=== PATIENT | female | born 1970 | race Caucasian/White ===

== ENCOUNTER 2016-06-27 21:38 | Inpatient (IN) | payer MEDICARE ==
--- NOTE | ~2016-06-27 | PN ---
Unit #: [id number] #: [id number] Patient: ISABELL MCINTOSH [id number] [facility] [address] [place] [address] [id number] I MR#: [id number] NAME: ISABELL MCINTOSH. ROOM: P256 Age: 45 Sex: F Admission Date: 06/27/2016 : 1970 Attending Physician: Christian Pierson M.D. Admitting Physician: Christian Pierson M.D. Primary Care Physician: Primary Care Physician Judit GONZALES NOTES DATE OF SERVICE: 07/05/2016 DISCUSSION Ms. Mcintosh states that she became agitated and angry with the nurse this morning when the nurse attempted to defer provision of the patient's pain medication. She is quite insistent that these medications be delivered on her schedule. Her mood is irritable, but otherwise less depressed with a brighter affect. She is alert with no evidence of psychosis. She does continue to report some SI. ASSESSMENT Major depression; borderline personality disorder. PLAN Continue current treatment plan and anticipate discharge soon. Dictated by... Karen Beverly/dora TD: 07/06/2016 00:41 JOB #: [id number] NORA GONZALES NOTES Page 1 of 1 X Christian Pierson MD PROGRESS NOTE
--- NOTE | ~2016-06-27 | PN ---
Unit #: [id number] #: [id number] Patient: EMELY MCINTOSH [id number] [facility] [address] [place] [address] [id number] I MR#: [id number] NAME: EMELY MCINTOSH. ROOM: P256 Age: 45 Sex: F Admission Date: 06/27/2016 : 1970 Attending Physician: Christian Pierson M.D. Admitting Physician: Christian Pierson M.D. Primary Care Physician: Primary Care Physician Judit MELENDEZ PROGRESS NOTES DATE 06/29/2016 DISCUSSION Emely continues to be depressed, downcast and isolated. She tends to stay in her room for much of the day without coming out for very many groups or activities. She is alert and fully oriented. Her memory and concentration are fair. Her thought processes are logical. There is no evidence of psychosis today. She does continue to endorse suicidal ideation with multiple plans. ASSESSMENT Major depressive disorder. PLAN Continue current treatment plan and encourage participation in groups and activities. Dictated by... Christian Pierson M.D. JENIFFER/kari TD: 07/02/2016 20:22 JOB #: [id number] PEAJAKUB PROGRESS NOTES Page 1 of 1 X Christian Pierson MD PROGRESS NOTE
--- NOTE | ~2016-06-27 | PA ---
Unit #: [id number] #: [id number] Patient: EMELY MCINTOSH [id number] [place] [address] [id number] I MR#: [id number] NAME: EMELY MCINTOSH. ROOM: P251 Age: 45 Sex: F Admission Date: 06/27/2016 : 1970 Date of Assessment: Attending Physician: Christian Pierson M.D. Admitting Physician: Christian Pierson M.D. Primary Care Physician: Primary Care Physician No PSYCHIATRIC ASSESSMENT INFORMANTS The patient, reliable; OLOP, reliable. CHIEF COMPLAINT Suicidal ideation. HISTORY OF PRESENT ILLNESS Emely Mcintosh is a 45-year-old woman with a history of major depression and borderline personality disorder. She had made superficial scratches on both hands and wrist, stating that she was "so confused," ever having been recently approved for disability. She also reported noncompliance with some of her medications due to a change in her medical insurance. She was readmitted for stabilization. PAST PSYCHIATRIC HISTORY This is Emely's 18th admission to this facility. She is taking multiple psychiatric and nonpsychiatric medications, but has been erratically compliant. FAMILY PSYCHIATRIC HISTORY The patient's father suffered from an unspecified mental illness. SOCIAL HISTORY The patient is with a difficult relationship and a great deal of chaos in the family. She is on long-term disability for physical and medical conditions and lives with her family and children. PAST MEDICAL HISTORY History of grand mal seizures that had been suggested are psychological in nature, chronic pain, hypertension, and GERD. MEDICATIONS Oxycodone, Phenergan, lisinopril, Protonix, Keppra, gabapentin, Bentyl, and Fioricet. ALLERGIES Compazine, ibuprofen, Imitrex, and NSAIDs. SUBSTANCE ABUSE HISTORY The patient has been treated for opioid dependence in the past. MENTAL STATUS EXAMINATION Emely presented as a disheveled woman, who appeared older than her Unit #: [id number] #: [id number] Patient: EMELY MCINTOSH stated age. Her speech was soft and slow, but easily understood. Musculoskeletal examination was calm. Her mood was depressed with a flat affect. She was alert and fully oriented. Her memory and concentration were intact. Her thought processes were logical with no evidence of psychosis, although she did express mild paranoia. She reported suicidal ideation with a plan to cut her wrist and could not contract for safety. Insight and judgment, fair. Fund of knowledge and abstraction, fair. ASSETS AND LIABILITIES The patient is familiar with local resources and presents voluntarily for treatment. She does have a history of compliance with treatment. Liabilities include lack of current provider and erratic compliance. ADMITTING DIAGNOSES AXIS I: Major depression, F33.2. AXIS II: Borderline personality disorder. AXIS III: Hypertension, gastroesophageal reflux disease, chronic pain, and pseudoseizures. AXIS IV: AXIS V: PSYCHIATRIC PLAN The patient was admitted and placed on suicide precautions. Venlafaxine will be changed to immediate release form at 75 mg b.i.d. and other medications will be continued once confirmed through her pharmacy. Physical examination and laboratory studies will be ordered and reviewed. TREATMENT GOALS Resolution of SI, improvement in insight, and improvement in coping skills. DISCHARGE PLANNING Follow up with [facility] and primary care physician. ESTIMATED LENGTH OF STAY 5 days. Dictated by... Christian Pierson M.D. JENIFFER/dora TD: 06/29/2016 04:51 JOB #: [id number] PSYCHIATRIC ASSESSMENT Page 1 of 1 X Christian Pierson MD X PSYCHIATRIC ASSESSMENT
--- NOTE | ~2016-06-27 | DS ---
Unit #: [id number] #: [id number] Patient: EMELY MCINTOSH [id number] [facility] [address] [place] [address] [id number] I MR#: [id number] NAME: EMELY MCINTOSH ROOM: P256 Age: 45 Sex: F Admission Date: 06/27/2016 : 1970 Discharge Date: 07/06/2016 Attending Physician: Christian Pierson M.D. Primary Care Physician: Primary Care Physician No DISCHARGE SUMMARY REASON FOR ADMISSION Briana is a 45-year-old woman with a history of major depression and borderline personality disorder. The patient was increasingly hopeless and depressed, after she was recently approved for disability and felt this was a crisis point for her. She had made superficial scratches on both hands and her wrists and could not contract for safety in the outpatient setting. She was readmitted for stabilization. DIAGNOSTIC STUDIES LABORATORY RESULTS: Please see hospital chart. HOSPITAL COURSE The patient was admitted and placed on suicide precautions. She stated that she was unable to afford extended release form of venlafaxine, so this was changed to immediate release form beginning at 75 mg b.i.d. and later increased to t.i.d. for maximum benefit. For the first several days of her hospitalization, Emely was withdrawn and quiet, staying in her room, and having a very labile and tearful affect. As time went on, she was able to attend psychotherapy groups and activities more actively, and participated especially in journaling and art therapy. Her affect improved and mood was brighter. She was able to contract for safety on the date of discharge. DISCHARGE DIAGNOSES AXIS I: Major depression with psychotic features. AXIS II: Borderline personality disorder. AXIS III: Hypertension, gastroesophageal reflux disease, chronic pain, and pseudoseizures. AXIS IV: AXIS V: DISCHARGE INSTRUCTIONS Follow up with primary care physician and with community mental health resources. DISCHARGE MEDICATIONS Venlafaxine 75 mg t.i.d. for depression, Seroquel 400 mg at bedtime for mood stability and insomnia. Other medicines continued by primary care physician include clonazepam 0.5 mg every 8 hours as needed for anxiety, Neurontin 600 mg t.i.d. for pain, Keppra 500 mg b.i.d. for seizures, Protonix 40 mg daily for GERD, Zestril 20 mg daily for hypertension, Unit #: [id number] #: [id number] Patient: EMELY MCINTOSH oxycodone IR 30 mg every 4 hours maximum 4 doses in 24 hours as needed for pain, and Phenergan 25 mg every 6 hours as needed for nausea. CONDITION AT DISCHARGE Improved. PROGNOSIS Fair to good. DIET AND ACTIVITY Per primary care doctor. Dictated by... Christian Pierson M.D. JENIFFER/dora TD: 07/07/2016 11:37 JOB #: [id number] DISCHARGE SUMMARY Page 1 of 1 X Christian Pierson MD X DISCHARGE SUMMARY
--- NOTE | ~2016-06-27 | PN ---
Unit #: [id number] #: [id number] Patient: EMELY MCINTOSH [id number] [facility] [address] [place] [address] [id number] MR#: [id number] NAME: EMELY MCINTOSH. ROOM: P256 Age: 45 Sex: F Admission Date: 06/27/2016 : 1970 Attending Physician: Christian Pierson M.D. Admitting Physician: Christian Pierson M.D. Primary Care Physician: Primary Care Physician Judit MELENDEZ PROGRESS NOTES DATE 07/04/2016 DISCUSSION Emely continues to report depressed and anxious mood with labile affect. She is easily upset by minor slights through her family or peers and staff. She is attending groups and activities and appears to be trying although her psychological insight remains somewhat limited. She is alert and fully oriented with no evidence of psychosis today. ASSESSMENT Major depression with psychotic features. Borderline personality traits. PLAN We will increase venlafaxine to 75 mg t.i.d. and continue current precautions. Dictated by... Karen Beverly/jc TD: 07/07/2016 05:14 JOB #: [id number] NORA PROGRESS NOTES Page 1 of 1 X Christian Pierson MD X PROGRESS NOTE
--- NOTE | ~2016-06-27 | PN ---
Unit #: [id number] #: [id number] Patient: EMELY MCINTOSH [id number] [facility] [address] [place] [address] [id number] MR#: [id number] NAME: EMELY MCINTOSH ROOM: P256 Age: 45 Sex: F Admission Date: 06/27/2016 : 1970 Attending Physician: Christian Pierson M.D. Admitting Physician: Christian Pierson M.D. Primary Care Physician: Primary Care Physician Judit GONZALES NOTES DATE OF SERVICE: 06/30/2016 DISCUSSION Emely continues to be somewhat isolative, although she says that she is "going to try" to attend groups later today. She is tolerating a change to venlafaxine immediate release with no significant adverse side effects. She is alert and fully oriented today. Her mood is depressed with a significantly flat and downcast affect. There is no evidence of psychosis and she continues to report suicidal ideation. ASSESSMENT Major depression. PLAN Continue current treatment plan. We will provide calamine lotion for what appears to be an outbreak of poison stacey that the patient was exposed to prior to admission. Dictated by... Christian Pierson M.D. [facility]/monical TD: 07/01/2016 18:52 JOB #: [id number] NORA GONZALES NOTES Page 1 of 1 X Christian Pierson MD PROGRESS NOTE
--- NOTE | ~2016-06-27 | PN ---
Unit #: [id number] #: [id number] Patient: EMELY MCINTOSH [id number] [facility] [address] [place] [address] [id number] I MR#: [id number] NAME: EMELY MCINTOSH. ROOM: P256 Age: 45 Sex: F Admission Date: 06/27/2016 : 1970 Attending Physician: Christian Pierson M.D. Admitting Physician: Christian Pierson M.D. Primary Care Physician: Primary Care Physician Judit GONZALES NOTES DATE OF SERVICE: 07/01/2016 DISCUSSION Emely is a little more awake and alert today. She continues to express severely depressed mood and has a downcast affect. Her dress and grooming are slightly better today. She is alert and fully oriented. Her memory and concentration are fair. Her thought processes are logical with no evidence of psychosis. She continues to state that she has "lots of issues to work out" including a fractious relationship with her and a difficult relationship with her young daughter. ASSESSMENT Major depression. PLAN We will continue current precautions and medications. Dictated by... Karen Beverly/dora TD: 07/01/2016 18:41 JOB #: [id number] NORA PROGRESS NOTES Page 1 of 1 X Christian Pierson MD PROGRESS NOTE
--- NOTE | ~2016-06-27 | HP ---
Unit #: [id number] #: [id number] Patient: EMELY MCINTOSH [id number] [place] [address] [id number] MR#: [id number] NAME: EMELY MCINTOSH. ROOM: P251 Age: 45 Sex: F Admission Date: 06/27/2016 : 1970 Attending Physician: Christian Pierson M.D. Admitting Physician: Christian Pierson M.D. Primary Care Physician: Primary Care Physician No HISTORY AND PHYSICAL HISTORY OF PRESENT ILLNESS Emely is a 45 year old admitted to [address] [place] [address] with depression and verbalizing wanting to hurt herself. PAST MEDICAL HISTORY 1. History of self-harming. She has been scratching her wrist prior to admission. 2. Hepatitis C. 3. History of MRSA. 4. High blood pressure. 5. Seizure disorder. 6. History of migraines. 7. Degenerative disc disease. a. Chronic pain. 8. History of goiter. a. Partial thyroidectomy. PAST SURGICAL HISTORY 1. As above. 2. Hysterectomy. 3. Cholecystectomy. 4. Appendectomy. 5. Tubal ligation. ALLERGIES Sulfa, latex, Compazine, Imitrex, tramadol. SOCIAL HISTORY Smokes, denies alcohol and illicit drug use. FAMILY HISTORY Medically noncontributory. REVIEW OF SYSTEMS CONSTITUTIONAL: No fever or chills. HEENT: Denies any sore throat, ear pain or runny nose. CARDIOVASCULAR: Denies chest pain, irregular heart rhythm or palpitations. CHEST: Denies shortness of breath or cough. No hemoptysis. GASTROINTESTINAL: Denies nausea, vomiting, diarrhea or chronic constipation. ENDOCRINE: Denies history of increased thirst or urination. No recent significant weight loss or gain. GENITOURINARY: Denies dysuria, frequency, or hematuria. Unit #: [id number] #: [id number] Patient: EMELY MCINTOSH SKIN: Denies any rashes. HEMATOLOGIC: Denies history of increased bleeding or bruising. MUSCULOSKELETAL: Denies any hot, swollen joints. No generalized muscle pain. NEUROLOGIC: Denies problems with vision or speech. No frequent, severe headaches. No numbness, tingling or weakness in any extremities. Denies loss of bladder or bowel control. CURRENT MEDICATIONS 1. Seroquel 200 mg q.h.s. 2. Keppra 500 mg b.i.d. 3. Klonopin 0.5 mg q. 8 hours. 4. Phenergan p.r.n. 5. Neurontin 600 mg t.i.d. 6. Oxycodone 30 mg q. 4 hours p.r.n. 7. Zestril 20 mg daily. 8. Protonix 40 mg daily. 9. Effexor XR 75 mg daily. 10. Milk of Magnesia p.r.n. 11. Maalox p.r.n. 12. Tylenol p.r.n. PHYSICAL EXAMINATION GENERAL: Alert, well-nourished, in no apparent distress. VITAL SIGNS: Blood pressure 112/66, heart rate 80, respirations 16, temperature 98.6. WEIGHT: 150. HEIGHT: 5 feet 6 inches. SKIN: Warm and dry without rash. She has multiple linear superficial scratches along bilateral wrists. These areas have scabbed over. There is no increased redness, swelling, heat or pus noted. HEENT: Normocephalic. TMs not viewed. Oral and nasal passages clear. Conjunctivae clear. PERRLA. EOMs intact. NECK: Supple without lymphadenopathy or thyromegaly. HEART: Regular rate and rhythm without murmur. LUNGS: Clear. ABDOMEN: Soft, nontender. : Not done. EXTREMITIES: No evidence of cyanosis, clubbing or edema. Moves all without focal deficit. NEUROLOGICAL: Grossly within normal limits. Cranial Nerves: II: Visual guo are intact. III, IV AND : Extraocular movements are intact. Pupils are equal, round and reactive to light. V: Facial sensation is grossly normal. VII: Facial movements and expression are normal. VIII: Auditory acuity grossly intact. IX, X: Uvula is midline. Phonation is normal. XI: Patient shrugs shoulders and turns head normally. XII: Tongue protrudes in the midline. Sensory and Motor Function: Sensory and motor sensation is grossly normal. Motor: moves all extremities well. Coordination: Gait is normal. Deep Tendon Reflexes: Intact. IMPRESSION Psychiatric admission. RECOMMENDATIONS PSYCHIATRIC: Per psychiatrist. Unit #: [id number] #: [id number] Patient: DAYNA,EMELY J MEDICAL: 1. See no contraindications to participate in facility's activities. 2. Keep the wounds on her wrists clean with soap and water. No further Rx. MEDICAL PROGNOSIS Good. MEDICAL CONDITION Stable. Dictated by... Yesy Brown P.A.-C. for Karen Hernandez/kari TD: 06/28/2016 16:05 JOB #: [id number] HISTORY AND PHYSICAL Page 1 of 1 X Yesy Brown X HISTORY AND PHYSICAL
--- NOTE | ~2016-06-27 | PN ---
Unit #: [id number] #: [id number] Patient: EMELY MCINTOSH [id number] [facility] [address] [place] [address] [id number] I MR#: [id number] NAME: EMELY MCINTOSH. ROOM: P256 Age: 45 Sex: F Admission Date: 06/27/2016 : 1970 Attending Physician: Christian Pierson M.D. Admitting Physician: Christian Pierson M.D. Primary Care Physician: Primary Care Physician Judit GONZALES NOTES DATE OF SERVICE: 07/02/2016 DISCUSSION Emely's dress and grooming are slightly better this morning. She is up and participating in community mental health groups; however, she continues to have a very depressed mood and her affect is quite labile becoming quite tearful easily. She also ruminates excessively on troubles with her , daughter, and other issues that are essentially more appropriately addressed in long-term psychotherapy. She does complain of difficulty sleeping and vague paranoid symptoms at bedtime. She is alert and fully oriented and there was no clear evidence of psychosis in her presentation today. This is despite her report. She continues to report suicidal ideation with multiple plans. ASSESSMENT Major depression; borderline personality traits. PLAN We will increase Seroquel to 400 mg at bedtime and continue current medications and precautions. Dictated by... Karen Beverly/monical TD: 07/02/2016 12:54 JOB #: [id number] NORA PROGRESS NOTES Page 1 of 1 X Christian Pierson MD X PROGRESS NOTE
[~2016-06-27 21:38] MED LIST: ABILIFY5 MG PO; AL-MAG HYDROX-S30 M1 PO; APAP325 MG PO; ARTHRITIS PAIN650 M3 PO; EFFEXOR-XR150 MG PO; ESCITALOPRAM OX10 MG PO; FIORICET 50-301 EACH PO; FIORICET1 TAB PO; KEPPRA XR750 MG PO; KEPPRA500 M1 PO; KEPPRA750 M1 PO; KLONOPIN PO; KLONOPIN0.5 M1 PO; KLONOPIN0.5 MG PO; KLONOPIN1 MG PO; LEVAQUIN PO; LISINOPRIL20 MG PO; MAALOX ADVANCE770 ML PO; MAALOX MAXIMUM355 ML PO; MILK OF MAGNESIA PO; MINOCIN50 MG PO; MODERIBA PO; NEURONTIN PO; NEURONTIN600 MG PO; NICOTINE P1 PATCH .2 TD; NICOTINE TRANSD14 MG EXT; NICOTINE TRANSDE7 MG EXT; OXYCODONE HCL30 MG PO; OXYCONTIN60 MG PO; PANTOPRAZOLE SO40 MG PO; PHENERGAN25 M1 PO; PRINIVIL20 M1 PO; PROZAC PO; QUETIAPINE FUM200 MG PO; REBETOL200 MG PO; ROXICODONE30 M1 PO; SEROQUEL XR300 M1 PO; SOVALDI400 MG PO; VENLAFAXINE HC150 M1 PO; VENLAFAXINE HC150 MG PO
[2016-06-29 10:01] LABS: BASOPHIL% 0.7 % (0-2.5); EOSINOPHIL# 0.2 X10e3 (0-0.7); EOSINOPHIL% 3.4 % (0.0-7.0); HEMATOCRIT 38.9 % (35.0-45.0); LYMPHOCYTE% 53.5 % (17.0-45.0); MEAN CELL VOLUME 89.6 FL (83-96); MEAN CORPUSCULAR HEMOGLOBIN 29.9 PG (28-34); MEAN CORPUSCULAR HGB CONC 33.3 g/dL (30-36); MEAN PLATELET VOLUME 7.7 FL (6.5-11.5); MONOCYTE# 0.3 X10e3 (0-1.0); NEUTROPHIL% 36.4 % (40-75); PLATELET COUNT 306 X10e3 (140-420); RED BLOOD COUNT 4.34 X10e (3.90-5.30); RED CELL DISTRIBUTION WIDTH 13.2 % (11.0-15.5); WHITE BLOOD COUNT 5.6 X10e3 (4.0-10.5)
[2016-06-29 10:10] LABS: DIFF IND YES
[2016-06-29 11:17] LABS: ALBUMIN SERUM 3.9 g/dL (3.5-5.0); BILIRUBIN,TOTAL 0.4 mg/dL (0.2-2.0); BUN/CREATININE RATIO 18.57; CREATININE SERUM 0.7 mg/dL (0.6-1.4); GLOM FILT RATE Estimated 103.2 mL/min (>60); POTASSIUM 4.2 mmol/L (3.5-5.1); PROTEIN TOTAL SERUM 6.6 g/dL (6.0-8.3)
[2016-06-29 12:27] LABS: ANISOCYTOSIS SL; PLATELET ESTIMATE NORMAL (NORMAL); RBC NORMAL YES
[2016-07-01 09:46] LABS: URINE APPEARANCE CLEAR; URINE BILIRUBIN NEG (NEG); URINE BLOOD NEG (NEG); URINE COLOR YELLOW; URINE GLUCOSE NEG (NEG); URINE KETONE NEG (NEG); URINE LEUKOCYTE ESTERASE 1+ (NEG); URINE NITRATE NEG (NEG); URINE PROTEIN NEG (NEG); URINE SPECIFIC GRAVITY 1.003 (1.003-1.035); URINE UROBILINOGEN 0.2 MG/DL (NEG)
[2016-07-01 09:53] LABS: URBCS1 AUWI 0-2 /[HPF] (0-2); URINE BACTERIA AUWI NEG (NEGATIVE); URINE SQUAMOUS EPITHELIAL CELL OCC /[HPF]
[2016-07-01 11:24] LABS: AMPHETAMINE NEG (NEG); BARBITURATES NEG (NEG); BENZODIAZEPINES NEG (NEG); COCAINE NEG (NEG); MARIJUANA NEG (NEG); OPIATES NEG (NEG); TRICYCLIC ANTIDEPRESSANTS NEG (NEG); U METHADONE NEG (NEG)
== END 2016-07-06 15:30 | disposition home or self-care (01) | DRG 885 ==
LOC: P2L 23:10 → P1E 23:10 → P2L 06-28 13:01
PROVIDERS: Psychiatry & Neurology Psychiatry
DX: F32.3 Major depressive disorder, single episode, severe with psychotic features (principal); R56.9 Unspecified convulsions; R45.851 Suicidal ideations; F60.3 Borderline personality disorder; I10 Essential (primary) hypertension; K21.9 Gastro-esophageal reflux disease without esophagitis; G89.29 Other chronic pain; Z88.6 Allergy status to analgesic agent; Z88.8 Allergy status to other drugs, medicaments and biological substances; Z86.14 Personal history of Methicillin resistant Staphylococcus aureus infection; Z86.19 Personal history of other infectious and parasitic diseases; Z98.51 Tubal ligation status; Z90.49 Acquired absence of other specified parts of digestive tract; Z90.710 Acquired absence of both cervix and uterus; Z88.2 Allergy status to sulfonamides; Z91.040 Latex allergy status; F17.210 Nicotine dependence, cigarettes, uncomplicated
CPT/HCPCS: 80053; 80307; 81003; 85025